=== PATIENT | female | born 1960 | race Caucasian/White ===

== ENCOUNTER 2024-01-26 13:15 | Outpatient (RCR) | payer MEDICARE, MEDICAID, SELFPAY | END 2024-02-20 23:59 | disposition home or self-care (01) | LOC: SCTC 13:15 | PROVIDERS: PCP Family Medicine; Referring Provider Internal Medicine Hematology & Oncology; Visit Provider Internal Medicine Hematology & Oncology | DX: C56.3 Malignant neoplasm of bilateral ovaries (principal); C77.2 Secondary and unspecified malignant neoplasm of intra-abdominal lymph nodes; Z88.8 Allergy status to other drugs, medicaments and biological substances | CPT/HCPCS: 99212; G0463 ==

== ENCOUNTER 2024-04-05 15:42 | Outpatient (RCR) | payer MEDICARE, MEDICAID, SELFPAY ==
--- NOTE | 2024-04-05 16:27 | CTCFLWUP_ITS ---
[facility] [address], [place] [address] FOLLOW-UP NOTE Date: 04/05/2024 MR#: [id number] Name: KIM CHERY : 1960 Dx: C56.1 Malignant neoplasm of right ovary Identification. 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 After initial good response with neoadjuvant chemo and subsequent surgery had biopsy-proven recurrenc e of liver June 30, 2023. Currently on topotecan bevacizumab under Dr. Faye's direction. Most recent CA125 61 on 01/11/2024 . Has been taking Percocet 5 1-2 every 6 as needed. Cures website checked. Electronically signed by: oKjo Lazaro M.D. 04/05/2024 4:25 PM
--- NOTE | 2024-04-12 06:45 | CTCFLWUP_ITS ---
[facility] [address], [place] [address] FOLLOW-UP NOTE Date: 04/12/2024 MR#: [id number] Name: KIM CHERY : 1960 Dx: C56.1 Malignant neoplasm of right ovary Patient signed up for hospice. Maryanne BULLARD informed Electronically signed by: Kojo Lazaro M.D. 04/12/2024 6:43 AM
== END 2024-04-22 23:59 | disposition home or self-care (01) ==
LOC: SCTC 15:42
PROVIDERS: Referring Provider Radiology Therapeutic Radiology; Visit Provider Radiology Therapeutic Radiology
DX: C56.1 Malignant neoplasm of right ovary (principal)
CPT/HCPCS: 99213; G0463